=== PATIENT | female | born 1995 ===

== ENCOUNTER 2023-08-18 09:18 | Day surgery (SDC) | payer OTHER ==
[2023-08-11 11:16] LABS: URINE APPEARANCE Clear; URINE BILIRRUBIN Negative (NEGATIVE); URINE BLOOD Negative; URINE COLOR Yellow; URINE GLUCOSE Negative (NEGATIVE); URINE LEUKOCYTE Trace; URINE NITRATE Negative; URINE PROTEIN Negative (NEGATIVE)
[2023-08-11 11:19] LABS: HEMATOCRIT 40.5 % (36.0-45.00); HEMOGLOBIN 13.4 g/dL (12.0-15.00); MEAN CELL VOLUME 82.1 fL (80.00-100.00); MEAN CORPUSCULAR HEMOGLOBIN 27.1 pg (27.00-32.0); PLATELET COUNT 238 K/uL (150-450); RED BLOOD COUNT 4.93 M/uL (4.00-6.00); RED CELL DISTRIBUTION WIDTH 15.1 % (11.5-14.5)
[2023-08-11 11:20] LABS: URINE BACTERIA 1719.7 uL (0.0-1933); URINE EPITHELIAL CELLS 39.1 uL (0.0-38.8); URINE RBC 3.4 uL (0.0-20.8); URINE WBC 45.7 uL (0.0-23.2)
[2023-08-11 11:41] LABS: INR 1.03; PARTIAL THROMBOPLASTIN TIME 26.3 SECONDS (22.0-34.0); PROTHROMBIN TIME 10.8 SECONDS (9.0-11.5)
[2023-08-11 12:54] LABS: BILIRUBIN TOTAL 0.65 mg/dL (0.3-1.2); CREATININE SERUM 0.71 mg/dL (0.55-1.02); GFR 96.66; GLOBULINA 3.2 G/DL (2.4-3.5); POTASSIUM 4.13 mEq/L (3.5-5.1); TOTAL PROTEIN 7.2 gm/dL (6.4-8.2)
[2023-08-18] MEDS ORDERED: MORGIDOX100 MG PO (15:44)
[2023-08-18] MEDS ORDERED: TRAMADOL HCL E100 MG PO (15:44)
== END 2023-08-18 22:30 | disposition home or self-care (01) ==
LOC: CIR.AMB 09:18
PROVIDERS: ATTEND Obstetrics & Gynecology
DX: N85.8 Other specified noninflammatory disorders of uterus (principal); N92.1 Excessive and frequent menstruation with irregular cycle; D25.0 Submucous leiomyoma of uterus; Z20.822 Contact with and (suspected) exposure to COVID-19; Z88.6 Allergy status to analgesic agent; Z91.013 Allergy to seafood